=== PATIENT | female | born 1970 | race African-American/Black ===

== ENCOUNTER 2019-08-21 20:54 | Emergency (ER) | payer OTHER ==
[~2019-08-21] VITALS: Ht 160 cm; Wt 71.5 kg
[2019-08-21] MEDS ORDERED: PROPARACAINE OPHTH 0.5%, 15ML LEFTEYE STA (21:14)
[2019-08-21] MEDS ORDERED: PLEASE ENTER ALLERGIES MC SCH (21:30)
[2019-08-21] MEDS ORDERED: PROPARACAINE OPHTH 0.5%, 15ML ONE (21:57)
[2019-08-21] MEDS ORDERED: FLUORESCEIN OPHTHALMIC 1 MG STRIP ONE (21:57)
--- NOTE | 2019-08-21 22:00 | NUR ---
pt to rm from lobby. care assumed.
[2019-08-21] MEDS ORDERED: EYE WASH SOLUTION 120ML ONE (22:26)
--- NOTE | 2019-08-21 23:23 | NUR ---
pt medicated per mar for pain--states she is not driving tonight. Pt to be d/c home--awaiting paperwork.
[2019-08-21] MEDS ORDERED: HYDROcodone/APAP 5/325 TABLET PO ONE (23:30)
[2019-08-21 23:49] VITALS: BP 133/80
== END 2019-08-21 23:51 | disposition home or self-care (01) ==
LOC: ED 22:59
DX: H57.12 Ocular pain, left eye (principal)
CPT/HCPCS: 99283